=== PATIENT | female | born 1955 | race Caucasian/White ===

== ENCOUNTER 2021-12-17 08:06 | Outpatient (CLI) | payer MEDICARE, BC, SELFPAY ==
--- NOTE | 2021-12-17 08:15 | CRLHL7_ITS ---
For Patients: As a result of the Century Cures Act, medical imaging exams and procedure reports are released immediately into your electronic medical record. You may view this report before your referring provider. If you have questions, please contact your health care provider. BILATERAL SCREENING MAMMOGRAM WITH COMPUTER-AIDED DETECTION TECHNIQUE: CC and MLO views were obtained. These mammographic images have been obtained using full-field digital technique. These mammographic images were interpreted with the benefit of computer-aided detection. COMPARISON FILM: 09/27/18, 11/17/16, 10/08/15. FINDINGS: There are scattered areas of fibroglandular density IMPRESSION: There is no radiographic evidence for malignancy. ASSESSMENT: BI-RADS Category 1: Negative RECOMMENDATION: Routine screening mammogram in 1 year. A lay language report of this examination will be provided to the patient. Malvin Kay M.D. Diagnostic Radiologist [email or web address] [email or web address] / be/Dictated by: Malvin Kay MD @ 12/17/2021 9:43:00 AM (Electronically Signed)
== END 2021-12-17 08:07 | disposition home or self-care (01) ==
PROVIDERS: PCP Family Medicine; Visit Provider Family Medicine
DX: Z12.31 Encounter for screening mammogram for malignant neoplasm of breast (principal)
CPT/HCPCS: 77067

== ENCOUNTER 2021-12-30 09:27 | Outpatient (CLI) | payer MEDICARE, BC, SELFPAY ==
[2021-12-30 13:55] LABS: Basophils Absolute Auto 0.06 K/uL (0.00-0.30); Basophils Percent Auto 0.8 % (0.0-3.0); Eosinophils Absolute Auto 0.11 K/uL (0.00-0.50); Eosinophils Percent Auto 1.4 % (0.0-7.0); Hematocrit 40.8 % (33.0-51.0); Immature Granulocytes Abs Auto 0.04 K/uL (0.00-0.30); Lymphocytes Percent Auto 9.9 % (20-44); Mean Corpuscular HGB Conc 34 gm/dL (32-36); Mean Corpuscular Hemoglobin 33 pg (26-34); Mean Corpuscular Volume 96 fL (80-100); Monocytes Percent Auto 7.4 % (0.0-11.0); Platelet Count* 276 K/uL (140-440); RDW Coefficient of Variation % 11.9 % (11.5-15.5); Red Blood Count 4.24 m/uL (4.00-5.20); White Blood Count* 7.97 K/uL (4.50-11.00)
[2021-12-30 14:04] LABS: Slide Review Reflex No
[2021-12-30 18:02] LABS: Chloride* 96 mmol/L (96-114); Potassium* 3.5 mmol/L (3.6-5.1); Sodium* 134 mmol/L (135-149)
[2021-12-30 18:04] LABS: Cholesterol* 262 mg/dL (90-199)
[2021-12-30 18:05] LABS: Blood Urea Nitrogen* 13 mg/dL (7-30); Calcium* 8.4 mg/dL (8.4-10.6); Carbon Dioxide* 26 mmol/L (20-32); Creatinine* 0.6 mg/dL (0.5-1.5); Estimated Glomerular Filt Rate 99 ml/min; Glucose* 87 mg/dL (60-115); Triglycerides* 89 mg/dL (40-149)
[2021-12-30 18:24] LABS: HDL Cholesterol* 122 mg/dL (>=50); LDL Cholesterol Calculated 122 mg/dL (<100)
== END 2021-12-30 09:28 | disposition home or self-care (01) ==
PROVIDERS: PCP Family Medicine; Visit Provider Family Medicine
DX: Z01.419 Encounter for gynecological examination (general) (routine) without abnormal findings (principal); I10 Essential (primary) hypertension; E78.5 Hyperlipidemia, unspecified
CPT/HCPCS: 80048; 80061; 85025

== ENCOUNTER 2022-12-21 15:09 | Outpatient (CLI) | payer MEDICARE, BC, SELFPAY | END 2022-12-21 15:10 | disposition home or self-care (01) | PROVIDERS: PCP Family Medicine; Visit Provider Family Medicine | DX: Z00.00 Encounter for general adult medical examination without abnormal findings (principal); E78.2 Mixed hyperlipidemia; I10 Essential (primary) hypertension | CPT/HCPCS: 80048; 80061 ==

== ENCOUNTER 2023-11-04 08:02 | Outpatient (CLI) | payer MEDICARE, SELFPAY ==
--- NOTE | 2023-11-04 08:15 | CRLHL7_ITS ---
For Patients: As a result of the Century Cures Act, medical imaging exams and procedure reports are released immediately into your electronic medical record. You may view this report before your referring provider. If you have questions, please contact your health care provider. BILATERAL SCREENING MAMMOGRAM WITH COMPUTER-AIDED DETECTION AND TOMOSYNTHESIS TECHNIQUE: CC and MLO views were obtained. These mammographic images have been obtained using full-field digital technique. These mammographic images were interpreted with the benefit of computer-aided detection. Breast Tomosynthesis was used in this interpretation. COMPARISON FILM: 12/17/21, 12/04/19, 09/27/18. FINDINGS: There are scattered areas of fibroglandular density. IMPRESSION: There is no radiographic evidence for malignancy. ASSESSMENT: BI-RADS Category 1: Negative RECOMMENDATION: Routine screening mammogram in 1 year. A lay language report of this examination will be provided to the patient. Malvin Kay M.D. Diagnostic Radiologist [email or web address] SP/Dictated by: Malvin Kay MD @ 11/04/2023 11:07:00 AM (Electronically Signed)
== END 2023-11-04 08:03 | disposition home or self-care (01) ==
LOC: MAMMO 08:04
PROVIDERS: PCP Family Medicine; Visit Provider Family Medicine
DX: Z12.31 Encounter for screening mammogram for malignant neoplasm of breast (principal)
CPT/HCPCS: 77063; 77067

== ENCOUNTER 2023-12-20 08:13 | Outpatient (CLI) | payer MEDICARE, SELFPAY | END 2023-12-20 08:14 | disposition home or self-care (01) | PROVIDERS: PCP Family Medicine; Visit Provider Family Medicine | DX: I10 Essential (primary) hypertension (principal); E78.2 Mixed hyperlipidemia | CPT/HCPCS: 80048; 80061; 85025 ==

== ENCOUNTER 2024-12-28 10:22 | Outpatient (CLI) | payer MEDICARE, SELFPAY | END 2024-12-28 10:23 | disposition home or self-care (01) | PROVIDERS: PCP Family Medicine; Visit Provider Family Medicine | DX: E78.2 Mixed hyperlipidemia (principal); I10 Essential (primary) hypertension | CPT/HCPCS: 80048; 80061; 84460 ==